=== PATIENT | female | born 1985 | race Caucasian/White ===

== ENCOUNTER 2017-10-04 08:03 | Day surgery (SDC) | payer BC ==
[2017-10-04] MEDS ORDERED: PROPOFOL 20 ML (09:46)
[2017-10-04] MEDS ORDERED: FENTAnyl 50 MCG/ML VIAL (09:46)
[2017-10-04] MEDS ORDERED: LIDOCAINE 2% (SDV) 5 ML INJ (09:46)
[2017-10-04] MEDS ORDERED: MIDAZOLAM 1 MG/ML 2 ML INJ (09:46)
== END 2017-10-04 11:08 | disposition home or self-care (01) ==
LOC: GIL 08:03
DX: R19.4 Change in bowel habit (principal); K21.9 Gastro-esophageal reflux disease without esophagitis; K29.70 Gastritis, unspecified, without bleeding; K64.8 Other hemorrhoids; E03.9 Hypothyroidism, unspecified; G40.909 Epilepsy, unspecified, not intractable, without status epilepticus
CPT/HCPCS: 43239; 87081